=== PATIENT | male | born 1935 | race Caucasian/White ===

== ENCOUNTER 2016-10-13 00:07 | Emergency (ER) | payer MEDICARE ==
[~2016-10-13] VITALS: Ht 182.9 cm; Wt 90.0 kg
[2016-10-13 00:08] VITALS: BP 218/102; PULSE 110; RESP 22; TEMP 98.1; O2SAT 88
[2016-10-13 00:15] VITALS: BP 148/110; PULSE 98; RESP 16; O2SAT 94
[2016-10-13 00:16] VITALS: BP 149/110; PULSE 99; RESP 16; O2SAT 93
--- NOTE | 2016-10-13 00:16 | PD ---
HPI Chief Complaint: Bleeding Time Seen by Provider: 00:15 Travel History International Travel<30 days: No Contact w/Intl Traveler<30days: No Traveled to known affect area: No History of Present Illness HPI 80-year-old male came into the emergency room for oral bleeding that started last night. Patient had dental extraction done yesterday of his #34 tooth. Patient is Xarelto. He held his dose for Xarelto the date prior surgery but took the dose today. The left taking the medication the bleeding started and he could not get it to stop. He is hypertensive. Answering questions appropriately. [facility] Past Medical History Narrative Medical List of his past medical history as reviewed from the nursing note. Social History Tobacco Use: No Allergies-Medications (Allergen,Severity, Reaction): Coded Allergies: No Known Allergies (Unverified , 10/13/16) Comments No known drug allergies. Reported Meds & Prescriptions Reported Meds & Active Scripts Active Reported Novolin R Inj (Insulin Human Regular) 1,000 Unit/10 Ml Vial 0 SQ DIRECTED Sliding Scale As Directed. Novolin N Inj (Insulin Human NPH) 1,000 Unit/10 Ml Vial 0 SQ DIRECTED Sliding Scale As Directed. Lipitor (Atorvastatin Calcium) 20 Mg Tab 20 Mg PO HS Lisinopril 30 Mg Tab 60 Mg PO DAILY Xarelto (Rivaroxaban) 20 Mg Tab 20 Mg PO DAILY Narrative Medication List of his home medications reviewed from the nursing note. Review of Systems Except as stated in HPI: all other systems reviewed are Neg Physical Exam Narrative GENERAL: Awake, alert, anxious, mild distress SKIN: Warm and dry. HEAD: Atraumatic. Normocephalic. EYES: Pupils equal and round. No scleral icterus. No injection or drainage. ENT: No nasal bleeding or discharge. Mucous membranes pink and moist. Significant blood in the oral cavity. Patient is handling secretions well. Lose clot on the gum with a dental extraction was done. No tenderness or swelling. NECK: Trachea midline. No JVD. CARDIOVASCULAR: Regular rate and rhythm. No murmur appreciated. RESPIRATORY: No accessory muscle use. Clear to auscultation. Breath sounds equal bilaterally. GASTROINTESTINAL: Abdomen soft, non-tender, nondistended. Hepatic and splenic margins not palpable. MUSCULOSKELETAL: No obvious deformities. No clubbing. No cyanosis. No edema. NEUROLOGICAL: Awake and alert. No obvious cranial nerve deficits. Motor grossly within normal limits. Normal speech. PSYCHIATRIC: Appropriate mood and affect; insight and judgment normal. Data Data Last Documented VS Vital Signs Date Time Temp Pulse Resp B/P Pulse Ox O2 Delivery O2 Flow Rate FiO2 10/13/16 04:56 80 16 100 10/13/16 04:30 149/70 Room Air 10/13/16 00:08 98.1 Orders Thrombin Top Soln (Thrombin Top Soln) (10/13/16 00:30) Gelatin 25 Mm X 50 Mm Top (Gelfilm 25 Mm (10/13/16 03:30) Clonidine (Catapres) (10/13/16 03:30) MDM Medical Decision Making Medical Screen Exam Complete: Yes Emergency Medical Condition: Yes Medical Record Reviewed: Yes Differential Diagnosis Post tooth extraction bleeding, anticoagulant Narrative Course 4:46 AM patient was asked to rinse his mouth with ice water. There was diffuse clot noticed which was removed by me with a gauze. Gauze was put in in the patient was asked to bite down to hold pressure. The bleeding continued and I soaked another gauze with thrombin solution and asked him to bite down on that again and hold pressure for almost an hour. When I went and took the gauze about it seemed like the bleeding had stopped initially for a minute but then started again. At this point I decided to asked the PA to put 2 Vicryl sutures in order to stop the bleeding. Patient was also given 0.1 mg of clonidine for his hypertension. Please refer to his note. He did put a Gelfoam. Seems like the bleeding has controlled at this point. I intend to send the patient home. He said his dentist office opens at 8:30 AM and he'll follow up with them. Procedures EKG Prior to Arrival: No Diagnosis Primary Impression: post tooth extraction bleeding Additional Impressions: patient on anticoagulation Essential hypertension Referrals: Primary Care Physician 2 days Additional Instructions: Please follow-up with your primary care as well as the dental surgeon in the morning when his office opens. Eat soft diet. Hold Xarelto for next 48 hours. Disposition: 01 DISCHARGE HOME Condition: Stable Noelle Mckay MD Oct 13, 2016 00:16 Noelle Mckay MD Oct 13, 2016 00:16
[2016-10-13] MEDS ORDERED: THROMBIN (TOPICAL) 5,000 UNIT VIAL TOPICAL ONE (00:30)
[2016-10-13] MEDS ORDERED: NOVONP2 SQ (00:34)
[2016-10-13] MEDS ORDERED: XARE20TA PO (00:34)
[2016-10-13] MEDS ORDERED: NOVORP2 SQ (00:34)
[2016-10-13] MEDS ORDERED: LIPI20TA PO (00:34)
[2016-10-13] MEDS ORDERED: LISI30TA4 PO (00:34)
[2016-10-13] MEDS ORDERED: cloNIDine HCL 0.1 MG TAB PO ONE (03:30)
[2016-10-13] MEDS ORDERED: GELATIN 25 MM X 50 MM FILM TOP ONE (03:30)
--- NOTE | 2016-10-13 04:21 | PD ---
Physical Exam Date Seen by Provider: Oct 13, 2016 Time Seen by Provider: 04:19 Narrative HEENT: The patient appears to have had a extraction of tooth #30. He has a large clot with bleeding coming from underneath it. Data Data Last Documented VS Vital Signs Date Time Temp Pulse Resp B/P Pulse Ox O2 Delivery O2 Flow Rate FiO2 10/13/16 00:20 99 25 93 Room Air 10/13/16 00:16 149/110 10/13/16 00:08 98.1 Orders Thrombin Top Soln (Thrombin Top Soln) (10/13/16 00:30) Gelatin 25 Mm X 50 Mm Top (Gelfilm 25 Mm (10/13/16 03:30) Clonidine (Catapres) (10/13/16 03:30) MDM Medical Record Reviewed: Yes Supervised Visit with DENNIS: Yes Differential Diagnosis Differential diagnoses: Postop bleeding, hypertension, hematoma, postop pain Narrative Course I tried to apply lidocaine with epinephrine to obtain hemostasis. This has been unsuccessful. He has been noted that his blood pressure is quite high. He is given clonidine 0.2 mg by mouth. I suspect the patient's persistent bleeding is directly related to his high blood pressure. Patient has gargled with ice water. Gelfoam has been placed in the socket along with a 2 x 2 and direct pressure has been applied. I will check this again in the next 15-30 minutes. Patient Instructions: General Instructions Disposition: 01 DISCHARGE HOME Condition: Stable Tanmay Meier Oct 13, 2016 04:21
[2016-10-13 04:30] VITALS: BP 149/70; PULSE 80; RESP 16
== END 2016-10-13 05:15 | disposition home or self-care (01) ==
LOC: NEPE 00:07
DX: K06.8 Other specified disorders of gingiva and edentulous alveolar ridge (principal); I10 Essential (primary) hypertension; Z98.890 Other specified postprocedural states; Z79.01 Long term (current) use of anticoagulants
CPT/HCPCS: 12011